=== PATIENT | male | born 1995 | race Caucasian/White ===

== ENCOUNTER 2021-03-31 12:37 | Emergency (ER) | payer SELFPAY ==
[2021-03-31] MEDS ORDERED: Ondansetron 4 MG Tab.DIS PO ONE (13:39)
--- NOTE | 2021-03-31 13:41 | EDM.PDOC ---
ED HPI GENERAL MEDICAL PROBLEM - General Chief Complaint: General Stated Complaint: NAUSEA DIARRHEA BODY ACHES SOB Time Seen by Provider: 03/31/21 13:14 Source of Information: Reports: Patient, RN Notes Reviewed History Limitations: Reports: No Limitations - History of Present Illness INITIAL COMMENTS - FREE TEXT/NARRATIVE: Patient is a 25-year-old male who presents to the ER for the evaluation of his multiple [id number] symptoms. States that this started last night, and he had nausea/vomiting, diarrhea, body aches, fevers and chills. States that he did not eat anything questionable and his girlfriend and brother also ate the same food he did and there was no issues with them. He has not taken any soda medications other than Pepto-Bismol for symptoms, and states that it helped the diarrhea a little bit. States that he is a fairly healthy individual otherwise, and is not complaining of any other symptoms. Generalized Pain Score (Numeric/FACES): 3 - Related Data Allergies Allergy/AdvReac Type Severity Reaction Status Date / Time No Known Allergies Allergy Verified 03/31/21 12:49 Home Meds: Home Meds Ondansetron [Zofran ODT] 4 mg PO Q8H PRN #15 tab.dis 03/31/21 [Rx] Past Medical History - Past Health History Medical/Surgical History: Denies Medical/Surgical History Social & Family History - Tobacco Use Tobacco Use Status *Q: Current Every Day Tobacco User Years of Tobacco use: 7 Packs/Tins Daily: 1 - Caffeine Use Caffeine Use: Reports: Coffee, Energy Drinks, Soda, Tea - Recreational Drug Use Recreational Drug Use: Yes Recreational Drug Type: Reports: Marijuana/Hashish, Methamphetamine ED ROS GENERAL - Review of Systems Review Of Systems: Comprehensive ROS is negative, except as noted in HPI. ED EXAM, GENERAL - Physical Exam Exam: See Below Exam Limited By: No Limitations General Appearance: Alert, WD/WN, No Apparent Distress Respiratory/Chest: No Respiratory Distress, Lungs Clear, Normal Breath Sounds, No Accessory Muscle Use, Chest Non-Tender Cardiovascular: Normal Peripheral Pulses, Regular Rate, Rhythm, No Edema Peripheral Pulses: 2+: Radial (L), Radial (R) GI/Abdominal: Normal Bowel Sounds, Soft, Non-Tender, No Distention, No Mass Extremities: Normal Inspection, Normal Capillary Refill Neurological: Alert, Oriented, Normal Cognition, No Motor/Sensory Deficits Psychiatric: Normal Affect, Normal Mood Skin Exam: Warm, Dry, Intact, Normal Color, No Rash Course - Vital Signs Last Recorded V/S: Last Vital Signs Temp 97.8 F 03/31/21 12:48 Pulse 100 03/31/21 12:48 Resp 18 03/31/21 12:48 BP 132/93 H 03/31/21 12:48 Pulse Ox 100 03/31/21 12:48 - Orders/Labs/Meds Labs: Laboratory Tests 03/31/21 03/31/21 03/31/21 Range/Units 12:52 13:55 13:55 WBC 10.20 H (4.23-9.07) K/mm3 RBC 5.58 (4.63-6.08) M/mm3 Hgb 16.0 (13.7-17.5) gm/dl Hct 47.0 (40.1-51.0) % MCV 84.2 (79.0-92.2) fl MCH 28.7 (25.7-32.2) pg MCHC 34.0 (32.2-35.5) g/dl RDW Std Deviation 41.5 (35.1-43.9) fL Plt Count 272 (163-337) K/mm3 MPV 10.3 (9.4-12.3) fl Neut % (Auto) 86.3 H (34.0-67.9) % Lymph % (Auto) 4.5 L (21.8-53.1) % Hunt % (Auto) 8.2 (5.3-12.2) % Eos % (Auto) 0.7 L (0.8-7.0) Baso % (Auto) 0.1 (0.1-1.2) % Neut # (Auto) 8.80 H (1.78-5.38) K/mm3 Lymph # (Auto) 0.46 L (1.32-3.57) K/mm3 Hunt # (Auto) 0.84 H (0.30-0.82) K/mm3 Eos # (Auto) 0.07 (0.04-0.54) K/mm3 Baso # (Auto) 0.01 (0.01-0.08) K/mm3 Sodium 139 (136-145) mEq/L Potassium 4.0 (3.5-5.1) mEq/L Chloride 102 (98-107) mEq/L Carbon Dioxide 28 (21-32) mEq/L Anion Gap 13.0 (5-15) BUN 22 H (7-18) mg/dL Creatinine 0.9 (0.7-1.3) mg/dL Est Cr Clr Drug Dosing 123.50 mL/min Estimated GFR (MDRD) > 60 (>60) mL/min BUN/Creatinine Ratio 24.4 H (14-18) Glucose 89 (70-99) mg/dL Calcium 8.8 (8.5-10.1) mg/dL Magnesium 2.2 (1.8-2.4) mg/dL Total Bilirubin 0.6 (0.2-1.0) mg/dL AST 10 L (15-37) U/L ALT 32 (16-63) U/L Alkaline Phosphatase 51 (46-116) U/L Total Protein 7.6 (6.4-8.2) g/dl Albumin 3.9 (3.4-5.0) g/dl Globulin 3.7 gm/dL Albumin/Globulin Ratio 1.1 (1-2) SARS-CoV-2 RNA (JAISON) Positive H (NEGATIVE) Meds: Medications Discontinued Medications Generic Name Dose Route Start Last Admin Trade Name Freq PRN Reason Stop Dose Admin Ondansetron HCl 4 mg 03/31/21 13:39 03/31/21 13:48 Ondansetron 4 Mg Tab.Dis PO 03/31/21 13:40 4 mg ONETIME ONE Administration - Re-Assessments/Exams Free Text/Narrative Re-Assessment/Exam: 03/31/21 13:40 Patient is a 25-year-old male who presents to the ER for evaluation of his [id number] symptoms. Although he does appear to be under the weather he is in no visible respiratory distress, and is resting appropriately on the ER cot. A Covid swab was obtained at the time of triage, get some basic labs to make sure he is not too dehydrated from the nausea and vomiting and diarrhea he has been having hopefully get him discharged home with conservative recommendations. I did explain to him that even if the Covid screen is negative today, due to him having symptoms only starting yesterday it is likely that this could be a false negative and that he should get retested in a few days and quarantine away from others during that time. Patient verbalized understanding at this time. 03/31/21 15:06 Patient's Covid screen is positive. All other labs essentially unremarkable. We will go ahead and discharge home with general recommendations, he states that the Zofran did help his stomach feel better. I will give him a prescription for this and have him isolate away from others as much as possible for the next 7 days or so, as he thinks he has been symptomatic for 2 or 3 days. Departure - Departure Time of Disposition: 15:06 Disposition: Home, Self-Care 01 Condition: Good Clinical Impression: COVID-19 - Discharge Information *PRESCRIPTION DRUG MONITORING PROGRAM REVIEWED*: No *COPY OF PRESCRIPTION DRUG MONITORING REPORT IN PATIENT JAMIE: No Instructions: COVID-19 Frequently Asked Questions, 10 Things You Can Do to Manage Your COVID-19 Symptoms at Home - [facility] (12/21/2020) Referrals: PCP,None [Primary Care Provider] - Forms: ED Department Discharge, ED Return to Work/School Form Additional Instructions: You were seen in the ER today for ongoing respiratory/GI symptoms. Your COVID-19 swab was positive at today's visit, this is likely the cause of all of your symptoms. Other labs at today's visit demonstrate no severe dehydration. Please try to increase your oral fluid intake, and eat multiple small meals throughout the day, to keep yourself healthy. You need to keep yourself nourished in order to fight off this disease. You can try a liquid diet like gatorade/powerade as well to get your electrolytes. You may take 500 mg Tylenol every hours 6 hours for pain/fever relief. Do not exceed 4000 mg Tylenol in a 24-hour time span. However, running a fever is your body's natural response to illness, and it allows the body to develop antibodies to disease, we are recommending trying to limit the use of Tylenol as much as possible to allow your body's natural immune response. You have been given a medication for nausea relief, 1 tablet dissolvable under your tongue every 8 hours as needed for ongoing nausea. [facility] near [facility], this pharmac y is only open from 12 to 4 PM on Sundays, you will need to go there during this timeframe to obtain this medication and take as prescribed. Recommend you obtain a pulse oximeter and monitor your oxygen levels at home, you should place the monitor on your finger, and sit in a calm, quiet position for a few minutes and then record the number that is on the screen. If this consistently below 90% on room air without movement, this would be cause for concern to come back to the hospital for further management of your COVID-19 disease. Please follow all guidance set forth from [facility] of [facility], regarding isolation purposes for your disease process. General isolation times are 10 days from when you started being symptomatic. Sepsis Event Note (ED) - Focused Exam Vital Signs: Vital Signs Temp Pulse Resp BP Pulse Ox 03/31/21 12:48 97.8 F 100 18 132/93 H 100
== END 2021-03-31 15:30 | disposition home or self-care (01) ==
LOC: JD.ED 12:37
DX: U07.1 COVID-19 (principal); Z72.0 Tobacco use
CPT/HCPCS: 36415; 80053; 83735; 85025; 87635; 99284; A9270; U0002